=== PATIENT | female | born 1985 | race Caucasian/White ===

== ENCOUNTER → 2024-07-01 | Outpatient (CLI) | payer BC ==
[~2024-07-01] MED LIST: CEPH500 PO; FOLI1 PO; HYDACE5 PO; LABE100 PO; LABETALOL; METF500C PO; Pyridium100 MG PO; Verotin-Gr Cap1 EACH PO; [UNRECOGNIZED DRUG - OTHER]
== END ==
LOC: LAB SHORT 14:38 → LAB 14:38
DX: I10 Essential (primary) hypertension (principal); R73.9 Hyperglycemia, unspecified
CPT/HCPCS: 82533; 83036